=== PATIENT | female | born 1965 | race Caucasian/White ===

== ENCOUNTER 2016-10-21 18:44 | Emergency (ER) | payer BC, MEDICAID ==
[~2016-10-21] VITALS: Ht 165.1 cm; Wt 54.4 kg
[~2016-10-21 18:44] MED LIST: IBUPROFEN PO
[2016-10-21] MEDS ORDERED: ACET-2605 PO (18:51)
[2016-10-21] MEDS ORDERED: METOCLOPRAMIDE HCL 10 MG/2 ML VIAL IM ONE (19:00)
[2016-10-21] MEDS ORDERED: diphenhydrAMINE 50 MG/1 ML VIAL IM ONE (19:00)
[2016-10-21] MEDS ORDERED: diphenhydrAMINE 50 MG/1 ML VIAL ONE (19:13)
[2016-10-21] MEDS ORDERED: METOCLOPRAMIDE HCL 10 MG/2 ML VIAL ONE (19:13)
[2016-10-21] MEDS ORDERED: MAG HYDROX/AL HYDROX/SIMETH 30 ML LIQUID UDC ONE (19:57)
[2016-10-21] MEDS ORDERED: LIDOCAINE VISCUS 2% 15 ML UDC ONE (19:57)
[2016-10-21] MEDS ORDERED: PANTOPRAZOLE SODIUM 40 MG TABLET.DR PO ONE ×2 (19:57→20:00)
[2016-10-21] MEDS ORDERED: MAG HYDROX/AL HYDROX/SIMETH 30 ML LIQUID UDC PO ONE (20:00)
[2016-10-21] MEDS ORDERED: IV NORMAL SALINE 1000 ML BAG IV ONE (20:00)
[2016-10-21] MEDS ORDERED: LIDOCAINE VISCUS 2% 15 ML UDC MM ONE (20:00)
[2016-10-21 20:23] LABS: BASOPHILS % (AUTO) 0.3 % (0.0-2.0); HEMATOCRIT 36.3 % (37-47); HEMOGLOBIN 11.9 G/DL (12.0-16.0); LYMPHOCYTES # (AUTO) 0.6 K/UL (0.8-4.8); LYMPHOCYTES % (AUTO) 18.9 % (20.5-51.5); MEAN CORPUSCULAR HEMOGLOBIN 28.7 UUG (27.0-31.0); MEAN CORPUSCULAR HGB CONC 33 g/dL (32.0-37.0); MEAN CORPUSCULAR VOLUME 87.6 FL (81.0-99.0); MONOCYTES # (AUTO) 0.3 K/UL (0.1-1.30); MONOCYTES % (AUTO) 9.8 % (0.0-11.0); NEUTROPHILS # (AUTO) 2.5 K/UL (1.8-8.9); PLATELET COUNT (AUTO) 181 K/UL (150-450); RED BLOOD CELL COUNT(AUTO) 4.15 MIL/UL (4.2-5.4); RED CELL DISTRIBUTION WIDTH 12.4 % (11.5-14.5); WHITE BLOOD COUNT (AUTO) 3.4 K/UL (4.0-11.2)
[2016-10-21 20:26] LABS: CALCIUM 8.8 mg/dL (8.5-10.1); CREATININE 0.8 mg/dL (0.6-1.3); POTASSIUM 3.6 mmol/L (3.5-5.1)
[2016-10-21 20:33] LABS: ALBUMIN 3.7 g/dL (3.4-5.0); BILIRUBIN,TOTAL 0.2 mg/dL (0.2-1.0); TOTAL PROTEIN, SERUM 7.1 g/dL (6.4-8.2)
--- NOTE | 2016-10-21 21:06 | NUR ---
IV removed. Catheter intact and site benign. Pressure and 4x4 gauze applied to site. No bleeding noted.Patient discharged to home in stable conditon with . Written and verbal after care instructions given. Patient verbalizes understanding of instructions.
== END 2016-10-21 21:07 | disposition home or self-care (01) ==
LOC: ER 18:51
DX: G43.909 Migraine, unspecified, not intractable, without status migrainosus (principal); K29.70 Gastritis, unspecified, without bleeding; F10.20 Alcohol dependence, uncomplicated; R11.0 Nausea
CPT/HCPCS: 36415; 80053; 84703; 85025; 96360; 96372 ×2; 99284; A4663; J1200; J2765; J7030; 93005

== ENCOUNTER 2017-08-11 21:35 | Emergency (ER) | payer BC ==
[~2017-08-11] VITALS: Ht 165.1 cm; Wt 54.9 kg
[~2017-08-11 21:35] MED LIST changes: +ACET-2605 PO; -IBUPROFEN PO
[2017-08-11] MEDS ORDERED: HYDROCODONE/APAP 10-325 MG TABLET ONE (23:56)
--- NOTE | 2017-08-11 23:59 | NUR ---
Patient discharged to home in stable conditon. Written and verbal after care instructions given. Patient verbalizes understanding of instructions. Patient able to ambulate unassisted with steady gait. Patient left with all of her belongings. Patient instructed not to operate vehicle or any other heavy machinery.
[2017-08-12] MEDS ORDERED: HYDROCODONE/APAP 10-325 MG TABLET PO ONE
[2017-08-12 00:14] VITALS: BP 119/76
== END 2017-08-12 00:02 | disposition home or self-care (01) ==
LOC: ER 21:37
DX: M25.572 Pain in left ankle and joints of left foot (principal); G89.29 Other chronic pain; F17.210 Nicotine dependence, cigarettes, uncomplicated; Z79.899 Other long term (current) drug therapy
CPT/HCPCS: A4663

== ENCOUNTER 2018-12-22 00:25 | Emergency (ER) | payer BC ==
[~2018-12-22] VITALS: Ht 165.1 cm; Wt 56.7 kg
[2018-12-22] MEDS ORDERED: IBUPROFEN 600 MG TABLET (00:37)
--- NOTE | 2018-12-22 00:42 | NUR ---
at bedside for MSE
[2018-12-22] MEDS ORDERED: ONDANSETRON ODT 4 MG TAB.RAPDIS ONE (00:59)
[2018-12-22] MEDS ORDERED: HYDROCODONE/APAP 10-325 MG TABLET PO ONE (01:00)
[2018-12-22] MEDS ORDERED: KETOROLAC TROMETHAMINE 60 MG INJ IM ONE ×2 (01:00)
[2018-12-22] MEDS ORDERED: ONDANSETRON ODT 4 MG TAB.RAPDIS SL ONE (01:00)
[2018-12-22] MEDS ORDERED: HYDROCODONE/APAP 10-325 MG TABLET ONE (01:00)
--- NOTE | 2018-12-22 01:32 | NUR ---
Patient discharged to home in stable conditon. Written and verbal after care instructions given. Patient verbalizes understanding of instructions. Pt. d/c w/ prescription per MD order, d/c papers signed, all belongings w/ pt., ID band removed, ambulated off unit w/ steady gait, NAD
== END 2018-12-22 01:33 | disposition home or self-care (01) ==
LOC: ER 00:28
DX: G89.29 Other chronic pain (principal); M54.5 Low back pain; G43.909 Migraine, unspecified, not intractable, without status migrainosus; F17.200 Nicotine dependence, unspecified, uncomplicated; Z79.1 Long term (current) use of non-steroidal anti-inflammatories (NSAID); Z79.899 Other long term (current) drug therapy
CPT/HCPCS: 96372; 99283; J1885; A4663; Q0162

== ENCOUNTER 2021-02-17 23:00 | Emergency (ER) | payer BC ==
[~2021-02-17] VITALS: Ht 165.1 cm; Wt 53.1 kg
[~2021-02-17 23:00] MED LIST changes: -ACET-2605 PO; +IBUPROFEN 600 MG TABLET
--- NOTE | 2021-02-17 23:05 | NUR ---
PT AMBULATED TO ER WITH STEADY GAIT A/OX3 C/O DIZZINESS WITH NAUSEA THAT STARTED AT 1300 TODAY. NO SOB OR LABORED BREATHING, DENIES CP/PRESSURE.
--- NOTE | 2021-02-17 23:26 | NUR ---
DR. LECHUGA AT BEDSIDE, MSE IN PROGRESS.
[2021-02-17] MEDS ORDERED: MECLIZINE HCL 25 MG TABLET PO ONE (23:30)
[2021-02-17] MEDS ORDERED: ONDANSETRON ODT 4 MG TAB.RAPDIS SL ONE (23:30)
[2021-02-17] MEDS ORDERED: MECLIZINE HCL 25 MG TABLET ONE (23:46)
[2021-02-17] MEDS ORDERED: ONDANSETRON ODT 4 MG TAB.RAPDIS ONE (23:46)
[2021-02-18] MEDS ORDERED: LORAZEPAM 2 MG/1 ML VIAL IV ONE (01:00)
[2021-02-18] MEDS ORDERED: LORAZEPAM 2 MG/1 ML VIAL ONE (01:07)
[2021-02-18 01:14] LABS: CREATININE 0.7 mg/dL (0.6-1.3); POTASSIUM 3.9 mmol/L (3.5-5.1)
[2021-02-18 01:27] LABS: BILIRUBIN,TOTAL 0.2 mg/dL (0.2-1.0); TOTAL PROTEIN, SERUM 7.8 g/dL (6.4-8.2)
[2021-02-18 01:32] LABS: HEMATOCRIT 38.1 % (31.2-41.9); MEAN CORPUSCULAR HEMOGLOBIN 29.9 uug (24.7-32.8); MEAN CORPUSCULAR VOLUME 89.4 fL (75.5-95.3); PLATELET COUNT (AUTO) 197 K/uL (179-408)
--- NOTE | 2021-02-18 01:35 | NUR ---
Patient is resting comfortably in bed with eyes closed. VSS.
[2021-02-18] MEDS ORDERED: MECL-182 PO (03:19)
[2021-02-18] MEDS ORDERED: ONDA4TAB5 PO (03:19)
--- NOTE | 2021-02-18 03:45 | NUR ---
Patient discharged to home in stable condition. A/O x4, denies any pain/discomfort upon discharge. No n/v or dizziness. Written and verbal after care instructions given. Patient verbalizes understanding of instructions. Stressed follow up or return to ER for worsening s/s. Steady gait. Picked up by family.
[2021-02-18 03:54] VITALS: BP 114/58
== END 2021-02-18 03:50 | disposition home or self-care (01) ==
LOC: ER 23:02
DX: R42 Dizziness and giddiness (principal); Z20.822 Contact with and (suspected) exposure to COVID-19; F17.210 Nicotine dependence, cigarettes, uncomplicated; R03.0 Elevated blood-pressure reading, without diagnosis of hypertension
CPT/HCPCS: 36415; 80053; 85025; 87426; 96374; 99284; 99406; J2060; J8597; Q0162

== ENCOUNTER 2022-04-04 22:30 | Emergency (ER) | payer BC ==
[~2022-04-04 22:30] MED LIST changes: +MECL-225 PO; +ONDA4TAB5 PO
--- NOTE | 2022-04-05 01:55 | NUR ---
Patient left ER without being seen
== END 2022-04-05 01:58 | disposition left against medical advice (07) ==
LOC: ER 22:35
DX: Z53.21 Procedure and treatment not carried out due to patient leaving prior to being seen by health care provider (principal)